=== PATIENT | male | born 1945 | race Asian ===

== ENCOUNTER 2020-11-04 16:06 | Observation (INO) | payer MEDICARE, SELFPAY ==
[2020-11-04 18:39] VITALS: BMI 25.2
[2020-11-04] MEDS ORDERED: Acetaminophen 325 MG TAB PO PRN (20:09)
[2020-11-04] MEDS ORDERED: Calcium Carbonate 500 MG ChewTAB PO PRN (20:09)
[2020-11-04] MEDS ORDERED: Labetalol HCl 100 MG/20 ML VIAL SLOW IVP PRN (20:09)
[2020-11-04] MEDS ORDERED: Ondansetron ODT 4 MG TAB PO PRN (20:09)
[2020-11-04] MEDS ORDERED: hydrALAZINE 20 MG/ML VIAL SLOW IVP PRN (20:09)
[2020-11-04] MEDS ORDERED: Meclizine HCl 25 MG TAB PO PRN (20:30)
[2020-11-04] MEDS ORDERED: Ondansetron ODT 4 MG TAB PO SCH (21:00)
[2020-11-04] MEDS ORDERED: Meclizine HCl 25 MG TAB PO SCH (21:00)
[2020-11-04 21:26] LABS: Band 6 % (5-11); Basophilic Stippling MODERATE = 3-5 cells (100X) (None Seen); Eosinophils 1 % (0-10); Lymphocytes 14 % (21-51); MDiff Complete? YES; Mean Corpuscular HGB CONC 32.3 g/dL (32.0-36.0); Mean Corpuscular Hemoglobin 22.2 pg (27.0-31.0); Mean Corpuscular Volume 68.7 fL (78.0-98.0); Mean Platelet Volume 8.6 fL (7.4-10.4); Microcytosis MODERATE=15-30 cells (100X) (0-5/hpf); Monocytes 10 % (0-10); Neutrophil 69 % (42-75); Platelet Count 273 thou/uL (130-400); Platelet Morphology Comment Appears Adequate; RBC Distribution Width 14.2 % (11.5-14.5); Red Blood Cell (RBC) Count 5.43 mill/uL (4.70-6.10); Target Cells SLIGHT = 2-5 cells (100X) (0-1/hpf); White Blood Cell (WBC) Count 9.1 thou/uL (4.8-10.8)
[2020-11-04 21:31] LABS: Lactic Acid 2.2 mmol/L (0.5-2.2)
[2020-11-04 21:35] LABS: Iron 71 ug/dL (65-175); Iron Binding Capacity, Total 220 mcg/dL (261-462)
[2020-11-05 05:09] LABS: #Eosinphils 0.2 thou/uL (0.0-0.7); #Lymphocytes 1.7 thou/uL (1.20-3.40); #Monocytes 0.6 thou/uL (0.11-0.59); #Neutrophils 4.1 thou/uL (1.40-6.50); %Basophils 0.4 % (0.0-1.0); %Eosinophils 3.2 % (0.0-10.0); %Lymphocytes 25.2 % (21.0-51.0); %Monocytes 9.3 % (0.0-10.0); Mean Corpuscular HGB CONC 31.9 g/dL (32.0-36.0); Mean Corpuscular Hemoglobin 21.8 pg (27.0-31.0); Mean Corpuscular Volume 68.3 fL (78.0-98.0); Mean Platelet Volume 8.9 fL (7.4-10.4); Platelet Count 261 thou/uL (130-400); RBC Distribution Width 14.3 % (11.5-14.5); Red Blood Cell (RBC) Count 5.51 mill/uL (4.70-6.10); White Blood Cell (WBC) Count 6.6 thou/uL (4.8-10.8)
[2020-11-05 05:32] LABS: Anion Gap 10 mmol/L (10-20); BUN (Urea Nitrogen) 11 mg/dL (8.4-25.7); Calc. Creatinine Clearance 61 mL/min (70-130); Calcium 8.6 mg/dL (7.8-10.44); Carbon Dioxide 27 mmol/L (23-31); Cardiac Risk 4.6 (Less than 4.5); Chloride 106 mmol/L (98-107); Cholesterol 144 mg/dl (< 200 Desired); Glucose 90 mg/dL (83-110); HDL Cholesterol 31 mg/dL (>60 Neg Risk); LDL Cholesterol, Calculated 87 mg/dL; Potassium 3.4 mmol/L (3.5-5.1); Sodium 140 mmol/L (136-145); Triglycerides 128 mg/dL (Less than 150)
[2020-11-05] MEDS ORDERED: Potassium Chloride 20 MEQ TAB PO SCH (08:00)
[2020-11-05] MEDS ORDERED: Losartan 25 MG TAB PO SCH (09:00)
[2020-11-05] MEDS ORDERED: Enoxaparin Sodium 40 MG/0.4 ML SYRINGE SC SCH (09:00)
[2020-11-05 09:18] LABS: Reticulocyte Count 1.5 % (0.5-1.5)
[2020-11-05 11:39] VITALS: BP 136/86; TEMP 98.5
[2020-11-05 12:50] LABS: SARS-CoV-2 PCR by NAA Not Detected (NotDetected)
[2020-12-01 12:44] LABS: Hemoglobin A2 5.5; Hemoglobin F 0
== END 2020-11-05 12:16 | disposition home or self-care (01) ==
LOC: 2SE 18:36 → EDBD 18:36
PROVIDERS: ADMIT Student in an Organized Health Care Education/Training Program; ATTEND Family Medicine
DX: H49.02 Third [oculomotor] nerve palsy, left eye (principal); E87.2 Acidosis; I10 Essential (primary) hypertension; D50.9 Iron deficiency anemia, unspecified; Z87.891 Personal history of nicotine dependence; Z98.41 Cataract extraction status, right eye; Z20.822 Contact with and (suspected) exposure to COVID-19
CPT/HCPCS: 70551; 80048; 80061; 82728; 83021; 83540; 83550; 83605; 83655; 85007; 85025; 85027; 85046; G0378 ×2; U0003; U0005; 36415; 85060; 87635